=== PATIENT | male | born 1990 | race Caucasian/White ===

== ENCOUNTER 2019-09-27 08:27 | Inpatient (IN) | payer MEDICAID ==
[~2019-09-27] VITALS: Ht 170.2 cm; Wt 66.7 kg
[2019-09-27 09:00] VITALS: BP 144/94
[2019-09-27] MEDS ORDERED: POLY17PO4 GT (09:35)
[2019-09-27] MEDS ORDERED: VIT500LI GT (09:35)
[2019-09-27] MEDS ORDERED: BISA10SU11 RC (09:35)
[2019-09-27] MEDS ORDERED: LORA10TA7 GT (09:35)
[2019-09-27] MEDS ORDERED: PROP10TA10 GT (09:35)
[2019-09-27] MEDS ORDERED: CHLO473M5 MM (09:35)
[2019-09-27] MEDS ORDERED: MULT-447 GT (09:35)
[2019-09-27] MEDS ORDERED: ATRO2DRO4 SL (09:35)
[2019-09-27] MEDS ORDERED: IBUP-1953 GT (09:35)
[2019-09-27] MEDS ORDERED: LEVE100S GT (09:35)
[2019-09-27] MEDS ORDERED: NUTR250L61 GT (09:36)
[2019-09-27] MEDS ORDERED: BISACODYL SUPP (10 MG) 10 MG/SUPP.RECT SUPP.RECT RC PRN (10:30)
[2019-09-27] MEDS ORDERED: ONDANSETRON HCL/PF 4 MG/2 ML VIAL IVP PRN (10:30)
[2019-09-27] MEDS ORDERED: MAG HYDROX/AL HYDROX/SIMETH 30 ML UDC PO PRN (10:30)
[2019-09-27] MEDS ORDERED: Z GUARD REMEDY 2 OZ OINT TP PRN (10:30)
[2019-09-27] MEDS ORDERED: IBUPROFEN 400 MG TABLET GT PRN (10:30)
[2019-09-27] MEDS ORDERED: ACETAMINOPHEN 325 MG TABLET PO PRN (10:30)
[2019-09-27] MEDS ORDERED: MAGNESIUM HYDROXIDE 30 ML UDC PO PRN (10:30)
[2019-09-27] MEDS ORDERED: ZOLPIDEM TARTRATE 5 MG TABLET PO PRN (10:30)
--- NOTE | 2019-09-27 10:36 | NUR ---
CONTACTED [facility] TO OBTAIN UA/ CXR RESULTS [facility] P# [phone] F# [phone] Addendum: 09/27/19 at 1112 by CHERRY ELIZABETH RN FAXED RELEASE OF INFORMATION FORM Addendum: 09/27/19 at 1822 by CHERRY ELIZABETH RN CONTACTED [facility] AGA[facility] C/O [facility]OLIS, INFORMED HER THAT WE DIDN'T RECEIVE THE REQUESTED LABS/IMAGING. STATED SHE WOULD FIND THE PROPER PAPERWORK AND FAX IT OVER.
--- NOTE | 2019-09-27 11:13 | NUR ---
CONTACTED [facility] FOR GTF ORDER CLARIFICATION, AWAITING CALL BACK.
[2019-09-27] MEDS ORDERED: VANCOMYCIN 1.25 GM in IV D5W 250 ML IV ONE (11:30)
[2019-09-27] MEDS ORDERED: FEE PK DOSING 1 MIN EA MC ONE (12:12)
[2019-09-27] MEDS: ASCORBIC ACID 500 MG TABLET GT SCH (12:22)
[2019-09-27] MEDS: MULTIVITAMINS,THERAGRAN 1 UDTAB TABLET GT SCH (12:22)
[2019-09-27] MEDS ORDERED: ATROPINE SULFATE OPHTH SOLN 15 ML BOTTLE SL SCH (13:00)
[2019-09-27] MEDS ORDERED: CEFEPIME 2 GM in IV NS 0.9% 50 ML IV SCH (13:00)
--- NOTE | 2019-09-27 13:23 | NUR ---
RN ADMITTING NOTE: PATIENT ARRIVED EARLIER THIS MORNING AT 0845 VIA GURNEY A DIRECT ADMIT FROM [facility]. PATIENT IS ALERT, NON-VERBAL ADMITTED FOR SEPSIS. PATIENT IS BED BOUND. SKIN INTACT BESIDES CUT ON RIGHT ELBOW, PICTURES TAKEN AND PLACED IN CHART, WILL GET ORDER FOR WOUND CARE CONSULTS. #20 ON RFA, FLUSHING WELL, SITE C/D/I, NO SIGNS OF COMPLICATIONS NOTED. PATIENT HAS GT, NO RESIDUAL, GTF JEVITY 1.2 @ 45CC/HR PER DIETARY, AWAITING FEEDING TO START HIM. CONTACTED [facility] TO GET INFORMATION ABOUT CXR AND UA BUT THEY NEVER SENT THE RESULTS. MRSA SWAB OF THE NARES COLLECTED, LAB CONTACTED. PATIENT'S MOTHER AWARE OF ADMISSION, JUDI [phone]. PATIENT IS A RESIDENT OF [employer] [phone]. PATIENT HAS A LOCK, DRAINING WELL. PATIENT ON O2 VIA NC 5L/MIN. NO SIGNS OF RESPIRATORY DISTRESS NOTED. SAFETY MEASURES IMPLEMENTED, BED IN LOWEST POSITION, LOCKED, SIDE RAILS UP X2, CALL LIGHT WITHIN REACH. WILL CONTINUE TO MONITOR PATIENT FOR CHANGES.
[2019-09-27] MEDS: CEFEPIME 2 GM in IV NS 0.9% 100 ML IV SCH ×2 (13:40→21:26)
[2019-09-27] MEDS: JEVITY 1.2 CAL 1,000 ML BOTTLE GT PRN (15:51)
[2019-09-27 15:52] LABS: APPEARANCE,URINE CLEAR (CLEAR); BILIRUBIN,URINE NEGATIVE (NEGATIVE); BLOOD, URINE TRACE-INTA Ery/uL (NEGATIVE); COLOR,URINE YELLOW (YELLOW); KETONES,URINE NEGATIVE (NEGATIVE); LEUKOCYTE ESTERASE ,URINE NEGATIVE (NEGATIVE); NITRITE, URINE NEGATIVE (NEGATIVE); PROTEIN,URINE NEGATIVE (NEGATIVE); UGLUCOSE NEGATIVE (NEGATIVE); UROBILINOGEN,URINE 0.2 EU/dL (0.2)
[2019-09-27 16:00] VITALS: BP 120/53
[2019-09-27 16:00] LABS: BACTERIA,URINE Few /HPF (None Seen); RBC,URINE 0-2 /HPF (0-2); SQUAMOUS EPITHELIAL CELL,UR Few /HPF (None Seen); WBC,URINE 0-2 /HPF (0-3)
[2019-09-27 16:14] LABS: CALCIUM, SERUM 8.8 mg/dL (8.5-10.1); CREATININE 0.5 mg/dL (0.6-1.3); POTASSIUM 4.1 mmol/L (3.5-5.1)
[2019-09-27] MEDS: ATROPINE SULFATE OPHTH SOLN 15 ML BOTTLE SL SCH (16:50)
[2019-09-27] MEDS: PROPRANOLOL HCL 10 MG TABLET GT SCH (16:50)
--- NOTE | 2019-09-27 17:42 | NUR ---
SEPSIS REASSESSMENT/ FLUID INITIATION INTERVENTIONS NOT COMPLETE D/T DR DUMONT STATING NO FLUIDS TO BE ADMINISTERED.
--- NOTE | 2019-09-27 18:22 | NUR ---
RN CLOSING NOTE: PATIENT IS CURRENTLY RESTING IN BED. TOLERATING GT SETTINGS WELL WITH NO RESIDUAL. PATIENT HAS GT, NO RESIDUAL, GTF JEVITY 1.2 @ 45CC/HR PER DIETARY, AWAITING FEEDING TO START HIM. CONTACTED [facility] TO GET INFORMATION ABOUT CXR AND UA BUT THEY NEVER SENT THE RESULTS. MRSA SWAB OF THE NARES COLLECTED, LAB CONTACTED. PATIENT'S MOTHER AWARE OF ADMISSION, JUDI [phone]. PATIENT IS A RESIDENT OF [facility] [phone]. PATIENT HAS A LOCK, DRAINING WELL. PATIENT ON O2 VIA NC 5L/MIN. NO SIGNS OF RESPIRATORY DISTRESS NOTED. SAFETY MEASURES IMPLEMENTED, BED IN LOWEST POSITION, LOCKED, SIDE RAILS UP X2, CALL LIGHT WITHIN REACH. WILL CONTINUE TO MONITOR PATIENT FOR CHANGES. Addendum: 09/27/19 at 1823 by CHERRY ELIZABETH RN DISREGARD PREVIOUS NOTE: INCORRECT CLOSING NOTE
--- NOTE | 2019-09-27 18:23 | NUR ---
RN CLOSING NOTE: PATIENT IS CURRENTLY RESTING IN BED. NO SIGNS OF RESPIRATORY DISTRESS NOTED. NO SIGNS OF ACUTE DISTRESS NOTED. TOLERATING GTF WITH NO RESIDUAL. LOCK DRAINING WELL. NO SIGNS OF RESPIRATORY DISTRESS NOTED. SAFETY MEASURES IMPLEMENTED, BED IN LOWEST POSITION, LOCKED, SIDE RAILS UP X2, CALL LIGHT WITHIN REACH. WILL ENDORSE TO ONCOMING SHIFT RN FOR CONTINUITY OF CARE.
[2019-09-27 20:00] VITALS: BP 142/90
[2019-09-27] MEDS: VANCOMYCIN 1.25 GM in IV D5W 250 ML IV SCH (20:12)
[2019-09-27] MEDS: POLYETHYLENE GLYCOL 3350 17 GM POWD.PACK GT SCH (21:26)
[2019-09-27] MEDS: LEVETIRACETAM SOL (5 ML) 100 MG/ML UDC GT SCH (21:26)
[2019-09-27] MEDS: CHLORHEXIDINE GLUCONATE 15 ML UDC MM SCH (21:26)
[2019-09-28] MEDS: VANCOMYCIN 1.25 GM in IV D5W 250 ML IV SCH ×2 (03:59→12:07)
[2019-09-28 05:00] VITALS: BP 99/55
[2019-09-28] MEDS: CEFEPIME 2 GM in IV NS 0.9% 100 ML IV SCH ×3 (05:06→21:31)
[2019-09-28 06:42] LABS: BASOPHILS % (AUTO) 0.3 % (0.0-2.0); EOSINOPHILS % (AUTO) 6.2 % (0.0-6.0); HEMATOCRIT 44 % (39-51); HEMOGLOBIN 14.7 g/dL (13.5-17.5); LYMPHOCYTES # (AUTO) 2.7 /CMM (0.8-4.8); LYMPHOCYTES % (AUTO) 31.4 % (20.0-44.0); MEAN CORPUSCULAR HGB CONC 34 g/dl (31.0-36.0); MEAN CORPUSCULAR VOLUME 93 fL (80-96); MONOCYTES # (AUTO) 0.8 /CMM (0.1-1.30); MONOCYTES % (AUTO) 9.7 % (2.0-12.0); NEUTROPHILS # (AUTO) 4.6 /CMM (1.8-8.9); NEUTROPHILS % (AUTO) 52.4 % (43.0-81.0); PLATELET COUNT (AUTO) 286 /CMM (150-450); WHITE BLOOD COUNT (AUTO) 8.7 K/uL (4.3-11.0)
--- NOTE | 2019-09-28 06:50 | NUR ---
MS RN NOTES AWAKE & ALERT. NOT IN ANY DISTRESS. NO SOB NOTED. DENIES ANY PAIN OR DISCOMFORT AT THIS TIME. WITH IV-HL PATENT & INTACT. AM CARE DONE. MONITORED ACCORDINGLY. CALL LIGHT WITHIN REACH. BED IN LOWEST POSITION. SR UP X 3 WITH BED ALARM ON FOR SAFETY. WILL ENDORSE TO NEXT SHIFT.
[2019-09-28 07:06] LABS: CALCIUM, SERUM 8.8 mg/dL (8.5-10.1); CREATININE 0.6 mg/dL (0.6-1.3); MAGNESIUM 1.9 mg/dL (1.8-2.4); PHOSPHORUS 3.9 mg/dL (2.5-4.9); POTASSIUM 4.1 mmol/L (3.5-5.1)
--- NOTE | 2019-09-28 07:15 | NUR ---
RN NOTES RECEIVED PT ON BED, NONVERBAL , ON 3 L O2 N/C , RESPIRATION EVEN AND UNLABORED, NO SOB NOTED . JEVITY AT 45CC/HR RUNNING VIA GT , TOLERATING WELL, NO RESIDUAL NOTED . RIGHT FOREARM IV SITE G 20 CLEAN, DRY AND INTACT, SR UP X3, CALL LIGHT WITHIN EASY REACH, BED LOCKED AND IN LOWEST POSITION, CONTINUE TO MONITOR .
[2019-09-28 08:00] VITALS: BP 115/81
[2019-09-28] MEDS: ASCORBIC ACID 500 MG TABLET GT SCH (09:18)
[2019-09-28] MEDS: LORATADINE 10 MG TABLET GT SCH (09:18)
[2019-09-28] MEDS: CHLORHEXIDINE GLUCONATE 15 ML UDC MM SCH ×2 (09:21→21:30)
[2019-09-28] MEDS: LEVETIRACETAM SOL (5 ML) 100 MG/ML UDC GT SCH ×2 (09:21→21:30)
[2019-09-28] MEDS: PROPRANOLOL HCL 10 MG TABLET GT SCH ×2 (09:21→16:34)
[2019-09-28] MEDS: MULTIVITAMINS,THERAGRAN 1 UDTAB TABLET GT SCH (09:24)
[2019-09-28] MEDS: HYDROCODONE/APAP 5/325MG 1 EACH TABLET PO PRN ×2 (09:25→16:31)
[2019-09-28] MEDS: ATROPINE SULFATE OPHTH SOLN 15 ML BOTTLE SL SCH ×3 (09:54→16:34)
[2019-09-28] MEDS: JEVITY 1.2 CAL 1,000 ML BOTTLE GT PRN (15:11)
[2019-09-28 16:00] VITALS: BP 117/76
--- NOTE | 2019-09-28 16:45 | NUR ---
RN NOTES CALL RECEIVED FROM PT'S MOM THAT SHE IS REQUESTING TO TALK TO PRIMARY MD. DR DUMONT NOTIFED VIA ANSWERING SERVICE .
[2019-09-28 17:43] VITALS: BP 117/76
--- NOTE | 2019-09-28 18:00 | NUR ---
RN NOTES PT STABLE, NO SIGNIFICANT CHANGES NOTED ON THIS SHIFT , WILL ENDORSE TO WATER METER INSTALLER NURSE FOR CONTINUITY OF CARE.
--- NOTE | 2019-09-28 19:30 | NUR ---
RN OPENING NOTES: Received pt in bed, eyes open, nonverbal. On 3.5L NC tolerating well. No respiratory distress noted. Has IV site on right forearm #20 patent and flushed. Dressing c/d/i. Has bilateral soft wrist restraints due to pulling out lines and gt site. Has GT feeding of Jevity 1.2 running at 45cc/hr. Tolerating feeding well. Has rios cath patent and draining urine. No pain noted using FLACC scale. Safety measures in place. Bed in lowest and locked position, side rails up x3, call light within reach. Will continue to monitor.
[2019-09-28 20:00] VITALS: BP 137/71
[2019-09-28] MEDS: VANCOMYCIN 1 GM in IV D5W 250 ML IV SCH (20:06)
[2019-09-28] MEDS: POLYETHYLENE GLYCOL 3350 17 GM POWD.PACK GT SCH (21:30)
--- NOTE | 2019-09-28 23:37 | NUR ---
Spoke with Hannah Dwight [phone] at [employer]. Patient has hx of cerebral palsy,intellectual disabilities and epilepsy. He resides at a local senior living [facility] [phone] at [address] [place] [address]. Patient is non-ambulatory and non-verbal. Totally dependent with adl's and confined to wheelchair most of the time. He receives services provided by [facility]. His pcp is Dr. Los Triplett . Current dc plan is to return to his senior living. Will need transportation assistance when discharge. Addendum: 09/28/19 at 2337 by GENIA MORA RN Amended: Links added.
[2019-09-29] MEDS: VANCOMYCIN 1 GM in IV D5W 250 ML IV SCH ×2 (03:48→11:29)
[2019-09-29 04:00] VITALS: BP 122/59
[2019-09-29] MEDS: CEFEPIME 2 GM in IV NS 0.9% 100 ML IV SCH ×2 (04:59→12:43)
--- NOTE | 2019-09-29 06:51 | NUR ---
RN CLOSING NOTES: Pt resting in bed, nonverbal. On 3.5L NC tolerating well. No respiratory distress noted. No acute changes noted during shift. IB site on right forearm patent and flushed. Dressing c/d/i. GT site flushed and patent with no residual noted. Has GT feeding Jevity 1.2 running at 45cc/hr. Tolerating feeding well. Lyles cath patent and draining urine. All meds administered as ordered. No pain noted using FLACC scale. Safety measures in place. Bed in lowest and locked position, side rails up x3, call light within reach. Will endorse to AM nurse for CACHORRO.
[2019-09-29 07:09] LABS: BASOPHILS % (AUTO) 0.5 % (0.0-2.0); EOSINOPHILS % (AUTO) 7.5 % (0.0-6.0); HEMATOCRIT 43 % (39-51); HEMOGLOBIN 14.6 g/dL (13.5-17.5); LYMPHOCYTES # (AUTO) 2.8 /CMM (0.8-4.8); LYMPHOCYTES % (AUTO) 36.9 % (20.0-44.0); MEAN CORPUSCULAR HGB CONC 34 g/dl (31.0-36.0); MEAN CORPUSCULAR VOLUME 93 fL (80-96); MONOCYTES # (AUTO) 0.6 /CMM (0.1-1.30); MONOCYTES % (AUTO) 8.2 % (2.0-12.0); NEUTROPHILS # (AUTO) 3.6 /CMM (1.8-8.9); NEUTROPHILS % (AUTO) 46.9 % (43.0-81.0); PLATELET COUNT (AUTO) 280 /CMM (150-450); RED BLOOD CELL COUNT(AUTO) 4.69 MIL/uL (4.5-6.0); WHITE BLOOD COUNT (AUTO) 7.6 K/uL (4.3-11.0)
[2019-09-29 07:28] LABS: CREATININE 0.5 mg/dL (0.6-1.3); POTASSIUM 3.8 mmol/L (3.5-5.1)
[2019-09-29 08:00] VITALS: BP 94/56
[2019-09-29] MEDS: CHLORHEXIDINE GLUCONATE 15 ML UDC MM SCH (08:09)
[2019-09-29] MEDS: LEVETIRACETAM SOL (5 ML) 100 MG/ML UDC GT SCH (08:10)
[2019-09-29] MEDS: ASCORBIC ACID 500 MG TABLET GT SCH (08:10)
[2019-09-29] MEDS: LORATADINE 10 MG TABLET GT SCH (08:10)
[2019-09-29] MEDS: MULTIVITAMINS,THERAGRAN 1 UDTAB TABLET GT SCH (08:10)
[2019-09-29] MEDS: ATROPINE SULFATE OPHTH SOLN 15 ML BOTTLE SL SCH ×2 (08:10→12:43)
[2019-09-29 08:11] VITALS: BP 94/56
[2019-09-29] MEDS: PROPRANOLOL HCL 10 MG TABLET GT SCH (08:11)
--- NOTE | 2019-09-29 08:25 | NUR ---
WOUND CARE CONSULT: PT PRESENTS WITH DRY HEALING ABRASION TO RT ELBOW, PRESENT ON ADMISSION. RECOMMENDATIONS MADE FOR SKIN PROTECTION. DISCUSSED WITH NURSING STAFF. PT ON COURT ISOFLEX LOW AIRLOSS BED. WILL SEE PRN. SANTILLAN IN AGREEMENT WITH PLAN OF CARE. CURRENT LASHAWN SCORE IS 16. Addendum: 09/29/19 at 0824 by DEVIN LIN WNDNU Amended: Links added.
[2019-09-29] MEDS ORDERED: LEVO500T75 PO (10:11)
--- NOTE | 2019-09-29 14:00 | NUR ---
MS/RIM TURNING FINISHER NOTES 2 BALLET PROFESSOR ARRIVED IN THE UNIT TO [employer] OPERATOR THE PATIENT. ALL DISCHARGE PAPERS WAS GIVEN TO THE EMT. REPORT WAS ALSO GIVEN TO ADDISON AT THE FACILITY AND TO THE EMT. FINAL SKIN ASSESSMENT WAS DONE. PHOTOS WAS TAKEN WELL AND WAS PLACED IN THE CHART. IV ASSESS WAS REMOVED. PATIENT WAS PLACED IN THE GURNEY. PATIENT LEFT THE HOSPITAL IN STABLE CONDITION.
== END 2019-09-29 14:00 | disposition home or self-care (01) | DRG 720 ==
LOC: TELE1 08:27 → MEDSG1 11:03
PROVIDERS: ADMIT Family Medicine; ATTEND Family Medicine
DX: A41.9 Sepsis, unspecified organism (principal); J15.9 Unspecified bacterial pneumonia; R56.9 Unspecified convulsions; I10 Essential (primary) hypertension; K21.9 Gastro-esophageal reflux disease without esophagitis; G80.8 Other cerebral palsy; R13.10 Dysphagia, unspecified; F79 Unspecified intellectual disabilities; Z93.1 Gastrostomy status
CPT/HCPCS: 36415; 71045-TC; 80048-TC; 80061-TC; 80202-TC; 81000-TC; 83735-TC; 84100-TC; 85025-TC; 87081-TC; 97530-TC; A4216; G0378; J0692; J1953; J3370; J7030; J7050; J7060